=== PATIENT | female | born 1975 | race African-American/Black ===

== ENCOUNTER 2016-05-06 07:37 | Emergency (ER) | payer MEDICARE, OTHER ==
--- NOTE | ~2016-05-06 | CT16 ---
[facility] A Service of [facility] & [facility] RADIOLOGY TEXT RESULTS PATIENT: JESSICA RIVAS LOCATION: SED : 75 UNIT #: [id number] AGE: [address]: Judy Kathleen MD SEX: F ORDER DR: [id number] [address] [address] [id number] E MR#: [id number] Acc #: [id number] NAME: JESSICA RIVAS : 1975 SEX: F STUDY DATE/TIME: 05/06/2016 8:22 UNIT: SED ROOM: STUDY DESCRIPTION: CT Angio Chest for PE Attending Physician: Judy Kathleen M.D. Ordering Physician: Judy Kathleen M.D. Primary Care Physician: Gracie Murrell M.D. MEDICAL IMAGING REPORT This report is preliminary unless electronic signature is present. EXAM CTA chest with contrast PE protocol 05/06/2016 HISTORY 41-year-old female with chest pain and shortness of air today. COMPARISON CTA chest 03/10/2016, Chest CT 12/03/2015. TECHNIQUE Helical scan performed through the chest following the timed bolus administration of IV contrast per PE protocol. Coronal 3-D MIP reconstructions. Sagittal reformatted images. This CT examination was performed with one or more of the following radiation dose reduction techniques: automatic exposure control, adjustment of mA and/or kV according to patient size, and iterative reconstruction. FINDINGS There is adequate opacification of the pulmonary arteries with no filling defects noted. Thoracic aorta normal in course and caliber without dissection. Heart size is normal. No pericardial effusion. No pleural effusions. No pneumothorax. Mild dependent bibasilar atelectasis. Emphysema. There is again noted a spiculated nodule in the right upper lobe measuring 9 x 6 mm. Previously noted cavitary area adjacent to this nodule has resolved since the prior study. There are again noted some smaller satellite nodules clustered around the spiculated nodule. Malignancy is again not excluded. There is a stable 7 mm nodule in the left lung apex and a stable 5 mm nodule in the mid left upper lobe. There are ground-glass opacities in the right middle lobe. This could represent early pneumonia. Follow up to resolution recommended. There is a stable 5 mm pulmonary nodule or interfissural lymph node in the region of the right middle lobe. [facility] A Service of [facility] & [facility] RADIOLOGY TEXT RESULTS PATIENT: JESSICA RIVAS LOCATION: [facility] : 75 UNIT #: [id number] AGE: [address]: Judy Kathleen MD SEX: F ORDER DR: Incidental scanning through the upper abdomen again demonstrates a splenic cyst or hemangioma. No acute bony abnormality. IMPRESSION 1. Negative for pulmonary emboli. 2. Negative for thoracic aortic aneurysm/dissection. 3. Spiculated nodule again noted in the right upper lobe measuring 9 x 6 mm. There has been interval resolution of previously noted cavitary area adjacent to the nodule, but there are persistent adjacent clusters of satellite nodules. This could represent an infectious or inflammatory process. Malignancy is again not excluded. Continued followup is suggested to resolution with chest CT recommended in 3-6 months. Again, biopsy may be considered. 4. Stable nodules in the left upper lobe and right middle lobe near the fissure since 12/03/2015. 5. Emphysema. 6. Stable splenic cyst or hemangioma. Dictated by... Gutierrez Sotelo M.D. THIS IS AN ELECTRONICALLY VERIFIED REPORT Gutierrez Sotelo M.D. at 05/08/2016 7:42 AM TESHA/gigi TD: 05/07/2016 07:35 JOB #: [id number] MEDICAL IMAGING REPORT
--- NOTE | ~2016-05-06 | EKG ---
PATIENT: JESSICA RIVAS UNIT #: [id number] Ventricular Rate: 81 BPM Atrial Rate: 81 BPM P-R Interval: 132 ms QRS Duration: 82 ms Q-T Interval: 364 ms QTC Calculation(Bezet): 422 ms P [place]: 62 degrees Calculated R [place]: 53 degrees Calculated T [place]: -127 degrees Diagnosis Line: Sinus rhythm with occasional Premature ventricular Diagnosis Line: complexes Diagnosis Line: Poor R wave progression questionable lead position Diagnosis Line: or body habitus Borderline ECG Diagnosis Line: When compared with ECG of 04-APR-2016 20:24, Diagnosis Line: Premature ventricular complexes are now Present Diagnosis Line: Confirmed by ELINA DWYER MD ([id number]) on 05/12/2016 Diagnosis Line: 9:37:06 AM INTERPRETING MD: REYMUNDO MERCADO
[2016-05-06 07:30] LABS: BASOPHIL# 0.1 X10e3 (0-0.3); BASOPHIL% 1.6 % (0-2.5); EOSINOPHIL# 0.1 X10e3 (0-0.7); EOSINOPHIL% 1.1 % (0.0-7.0); HEMATOCRIT 42.8 % (35.0-45.0); HEMOGLOBIN 14.5 gm/dL (12.0-16.0); LYMPHOCYTE# 3.7 X10e3 (1.0-3.5); MEAN CORPUSCULAR HEMOGLOBIN 29.5 PG (28-34); MEAN CORPUSCULAR HGB CONC 33.9 g/dL (30-36); MEAN PLATELET VOLUME 9.2 FL (6.5-11.5); MONOCYTE# 0.6 X10e3 (0-1.0); MONOCYTE% 6.8 % (3.0-12.0); NEUTROPHIL# 4.7 X10e3 (1.5-7.1); NEUTROPHIL% 50.5 % (40-75); PLATELET COUNT 178 X10e3 (140-420); RED BLOOD COUNT 4.92 X10e (3.90-5.30); RED CELL DISTRIBUTION WIDTH 13.6 % (11.0-15.5); WHITE BLOOD COUNT 9.2 X10e3 (4.0-10.5)
[2016-05-06 07:33] LABS: DIFF IND NO
[2016-05-06 07:37] LABS: PROTHROMBIN TIME (PATIENT) 11.6 SECONDS (9.5-12.4)
[~2016-05-06 07:37] MED LIST: ABILIFY5 MG PO; ACETAMINOPHEN; ALBUTEROL17 GM INH; ALDACTAZIDE PO; AMARYL PO; ANAPROX DS; ASPIRINEC PO; ATARAX PO; ATENOLOL; ATENOLOL PO; ATENOLOL25 GM; ATENOLOL50 MG PO; ATIVAN PO; AUGMENTIN PO; AZITHROMYCIN250 MG PO; BENADRYL PO; BENADRYL25 M1 PO; BENZONATATE PO; BROMPHED DM PO; CATAPRES0.1 MG PO; CIPRO PO; CLONIDINE HCL0.1 M1 PO; CLONIDINE PO; DIFLUCAN PO; DOXYCYCLINE150 MG PO; EFFER-K 10 MEQ10 MEQ PO; FAMOTIDINE PO; FAMOTIDINE20 MG PO; FLAGYL PO; FLEXERIL10 MG PO; FLONASE16 GM NS; GLUCOPHAGE500 MG PO; GLUCOPHAGE850 MG; HUMALOG INSULIN; HUMULIN 70/30 V10 ML SUBQ; HYDRALAZINE HCL25 MG PO; HYDROCHLOROTHIA25 MG PO; HYDROCORTISONE TOP; IBUPROFEN PO; IBUPROFEN800 MG PO; KEFLEX500 MG PO; KLONOPIN PO; KLONOPIN0.5 M1 PO; LEVAQUIN PO; LEVEMIR SQ; LEVEMIR SUBQ; LIPITOR PO; LISINOPRIL PO; LOPRESSOR PO; MACROBID100 M1 DOB; MEDROL DOSEPAK4 MG PO; MEDROL4 MG/DOSE- PO; METFORMIN PO; MOBIC PO; MOTRIN600 M2; MOUTHWASH180 ML PO; MUCINEX D ER T1 EACH PO; NAPROSYN250 M1 PO; NEURONTIN300 MG PO; NORVASC PO; NORVASC10 MG PO; NOVOLOG100 U/M2 SQ; PEN-VEE K PO; PENICILLIN PO; PERCOCET 5-3251 TAB PO; PHENERGAN PO; PHENERGAN25 M1 PO; PHENERGAN25 MG PO; PREDNISONE PO; PRILOSEC PO; PROVENTIL17 GM IH; PYRIDIUM PO; ROBITUSSIN A-C-S1 ML PO; ROBITUSSIN COU118 ML PO; SENNA-S TABLET1 EACH PO; SPIRONOLAC1 TAB 25/2 PO; TAGAMET PO; TENORMIN50 MG PO; TYLENOL #3 PO; ULTRAM PO; VICODIN 5/1 TAB 5/50 PO; VISTARIL PO; VOLTAREN75 MG PO; WATER PILL; XARELTO15 MG PO; ZANTAC PO; ZITHROMAX PO; ZITHROMAX1 G/PKT PO; ZOFRAN ODT4 MG PO; ZOFRAN ODT4 MG SL; ZOFRAN PO; ZOLOFT50 MG PO; ZYRTEC10 M2 PO
[2016-05-06 07:38] LABS: POC - CKMB <1.0 ng/mL (0.0-7.9); POC - MYOGLOBIN 43.3 ng/mL (0.0-169.0)
[2016-05-06 07:39] LABS: POC - TROPONIN <0.05 ng/mL (<=0.05)
[2016-05-06 07:40] LABS: URINE SOURCE CLEAN CATCH
[2016-05-06 07:44] LABS: URINE APPEARANCE CLEAR; URINE BILIRUBIN NEG (NEG); URINE BLOOD NEG (NEG); URINE COLOR YELLOW; URINE GLUCOSE 300 MG/DL (NORM); URINE KETONE NEG (NEG); URINE LEUKOCYTE ESTERASE NEG (NEG); URINE NITRATE NEG (NEG); URINE PH 5.5 (5-8); URINE PROTEIN NEG (NEG); URINE SPECIFIC GRAVITY <=1.005 (1.003-1.035); URINE UROBILINOGEN 0.2 MG/DL (NORM)
[2016-05-06 07:45] LABS: PARTIAL THROMBOPLASTIN TIME 25.1 SECONDS (25.6-38.1)
[2016-05-06 07:48] LABS: MICRO INDICATED? NO
[2016-05-06 07:55] LABS: AMPHETAMINE NEG (NEG); BARBITURATES NEG (NEG); BENZODIAZEPINES NEG (NEG); COCAINE NEG (NEG); MARIJUANA NEG (NEG); OPIATES POS (NEG); TRICYCLIC ANTIDEPRESSANTS NEG (NEG); U METHADONE NEG (NEG)
[2016-05-06 08:02] LABS: ALBUMIN SERUM 3.7 g/dL (3.5-5.0); ALT (SGPT) 18 U/L (10-40); AST (SGOT) 25 U/L (10-42); BILIRUBIN,TOTAL 0.6 mg/dL (0.2-2.0); BLOOD UREA NITROGEN 9 mg/dL (9-23); BUN/CREATININE RATIO 12.85; CALCIUM SERUM 8.7 mg/dL (8.4-10.2); CARBON DIOXIDE 25 mmol/L (22-31); CHLORIDE 98 mmol/L (100-111); CREATININE SERUM 0.7 mg/dL (0.6-1.4); GLOM FILT RATE Estimated ABOVE60 mL/min (>60); GLUCOSE FASTING 474 mg/dL (70-110); MAGNESIUM 1.9 mg/dL (1.6-3.0); POTASSIUM 3.5 mmol/L (3.5-5.1); PROTEIN TOTAL SERUM 7.1 g/dL (6.0-8.3); SODIUM 132 mmol/L (135-145)
[2016-05-06 08:09] LABS: ALKALINE PHOSPHATASE 73 U/L (32-92)
[2016-05-06 08:17] LABS: ALCOHOL BLOOD <5 mg/dL (0); BILIRUBIN, DIRECT <0.1 mg/dL (0.0-0.2); BILIRUBIN,INDIRECT 0.5 mg/dL (0.0-0.9)
[2016-07-31] MEDS ORDERED: CLONIDINE PO (12:24)
[2016-07-31] MEDS ORDERED: BENTYL10 MG PO (12:25)
[2016-07-31] MEDS ORDERED: ATENOLOL PO (12:25)
[2016-07-31] MEDS ORDERED: LEVEMIR FL100 UNIT/1 SUBQ (12:56)
[2016-07-31] MEDS ORDERED: HUMALOG100 UNIT/2 SUBQ (12:56)
[2016-08-01] MEDS ORDERED: VICODIN ES 7.51 EAC1 PO (12:09)
== END 2016-05-06 09:39 | disposition home or self-care (01) ==
LOC: SED 07:37
PROVIDERS: Student in an Organized Health Care Education/Training Program
DX: R10.13 Epigastric pain (principal); R07.9 Chest pain, unspecified; R07.0 Pain in throat; R91.1 Solitary pulmonary nodule; R73.9 Hyperglycemia, unspecified; F41.9 Anxiety disorder, unspecified; F17.200 Nicotine dependence, unspecified, uncomplicated; Z88.8 Allergy status to other drugs, medicaments and biological substances; Z91.040 Latex allergy status; Z79.899 Other long term (current) drug therapy
CPT/HCPCS: 36415; 71275; 80048; 80076; 80307; 81003; 82553; 83735; 83874; 83880; 84484; 85025; 85610; 85730; 93005; 96365; 96375; 99284; C9113; G0480; J2550; Q9967

== ENCOUNTER 2016-07-28 17:24 | Emergency (ER) | payer MEDICARE, OTHER ==
--- NOTE | ~2016-07-28 | CR72 ---
[facility] A Service of [facility] & [facility] RADIOLOGY TEXT RESULTS PATIENT: JESSICA RIVAS LOCATION: [facility] : 75 UNIT #: [id number] AGE: [address]: Maribell Rios MD SEX: F ORDER DR: [id number] [facility] [address] [place], [place] [address] [id number] E MR#: [id number] Acc #: [id number] NAME: JESSICA RIVAS : 1975 SEX: F STUDY DATE/TIME: 07/28/2016 19:48 UNIT: [facility] ROOM: STUDY DESCRIPTION: CR Chest Single View Portable Attending Physician: Maribell Rios M.D. Ordering Physician: Maribell Rios M.D. Primary Care Physician: Gracie Murrell M.D. MEDICAL IMAGING REPORT This report is preliminary unless electronic signature is present EXAM Single view of the chest, dated 07/28/16 at 1948 hours. COMPARISON Single view chest dated 03/10/16. HISTORY Shortness of air, chest pain, headache, acute fever since yesterday. Chest pain radiates to the right arm. FINDINGS Frontal view of the chest was obtained. Lungs appear to be well aerated without any patchy dense consolidation, pleural effusion or pneumothorax. There are some irregular opacities noted in the region of bilateral supraclavicular soft tissue and the muscles. It probably extends to the left frontal region rather than mild alveolar infiltrate in the left upper lobe. It is unclear if it is intrinsic or extrinsic to the patient. No obvious pleural effusion or pneumothorax is seen. Heart is of normal size. Bones do not demonstrate any severe abnormality. Dictated by... Rafael Marques M.D. THIS IS AN ELECTRONICALLY VERIFIED REPORT Rafael Marques M.D. at 07/31/2016 5:06 PM CPR/jt TD: 07/28/2016 23:14 JOB #: [id number] MEDICAL IMAGING REPORT Page 1 of 1 COPY
--- NOTE | ~2016-07-28 | US67 ---
[facility] A Service of [facility] & [facility] RADIOLOGY TEXT RESULTS PATIENT: JESSICA RIVAS LOCATION: [facility] : 75 UNIT #: [id number] AGE: [address]: Maribell Rios MD SEX: F ORDER DR: [id number] [facility] [address] [place], [place] [address] [id number] E MR#: [id number] Acc #: [id number] NAME: JESSICA RIVAS : 1975 SEX: F STUDY DATE/TIME: 07/28/2016 20:42 UNIT: [facility] ROOM: STUDY DESCRIPTION: Gallbladder Attending Physician: Maribell Rios M.D. Ordering Physician: Maribell Rios M.D. Primary Care Physician: Gracie Murrell M.D. MEDICAL IMAGING REPORT This report is preliminary unless electronic signature is present EXAM Gallbladder ultrasound. HISTORY Abdomen pain for 3 months. No injury. FINDINGS Ultrasound examination of the gallbladder demonstrates gallstones measuring up to 1.5 cm. No gallbladder distension or wall thickening or pericholecystic fluid. No biliary dilatation. The common bile duct measures 5 mm in diameter. IMPRESSION 1. Gallstones measure up to 1.5 cm. 2. No gallbladder distension or wall thickening or adjacent fluid. 3. No biliary dilatation. Dictated by... Dawsno Bentley M.D. THIS IS AN ELECTRONICALLY VERIFIED REPORT Dawson Bentley M.D. at 07/29/2016 11:46 AM DIAN/robert TD: 07/29/2016 00:03 JOB #: [id number] MEDICAL IMAGING REPORT Page 1 of 1 COPY
--- NOTE | ~2016-07-28 | EKG ---
PATIENT: JESSICA RIVAS UNIT #: [id number] Ventricular Rate: 83 BPM Atrial Rate: 83 BPM P-R Interval: 128 ms QRS Duration: 76 ms Q-T Interval: 354 ms QTC Calculation(Bezet): 415 ms P [place]: 41 degrees Calculated R [place]: 24 degrees Calculated T [place]: 80 degrees Diagnosis Line: Normal sinus rhythm Diagnosis Line: Nonspecific T wave abnormality Diagnosis Line: Borderline ECG Diagnosis Line: When compared with ECG of 06-MAY-2016 07:08, Diagnosis Line: Premature ventricular complexes are no longer Diagnosis Line: Present Diagnosis Line: Confirmed by LUCIUS ERICKSON MD ([id number]) on 07/30/2016 Diagnosis Line: 4:28:46 PM INTERPRETING MD: DRE MERCADO
[2016-07-28 18:27] LABS: BASOPHIL# 0.1 X10e3 (0-0.3); BASOPHIL% 0.9 % (0-2.5); EOSINOPHIL# 0.1 X10e3 (0-0.7); EOSINOPHIL% 0.8 % (0.0-7.0); HEMATOCRIT 47.4 % (35.0-45.0); HEMOGLOBIN 16.2 gm/dL (12.0-16.0); LYMPHOCYTE# 2.9 X10e3 (1.0-3.5); LYMPHOCYTE% 32.5 % (17.0-45.0); MEAN CORPUSCULAR HEMOGLOBIN 29.7 PG (28-34); MEAN CORPUSCULAR HGB CONC 34.2 g/dL (30-36); MEAN PLATELET VOLUME 8.7 FL (6.5-11.5); MONOCYTE# 0.6 X10e3 (0-1.0); MONOCYTE% 6.6 % (3.0-12.0); NEUTROPHIL# 5.2 X10e3 (1.5-7.1); NEUTROPHIL% 59.2 % (40-75); PLATELET COUNT 216 X10e3 (140-420); RED BLOOD COUNT 5.45 X10e (3.90-5.30); RED CELL DISTRIBUTION WIDTH 13.4 % (11.0-15.5); WHITE BLOOD COUNT 8.9 X10e3 (4.0-10.5)
[2016-07-28 18:28] LABS: DIFF IND NO
[2016-07-28 18:48] LABS: ALKALINE PHOSPHATASE 79 U/L (32-92); ALT (SGPT) 16 U/L (10-40); AST (SGOT) 12 U/L (10-42); BLOOD UREA NITROGEN 10 mg/dL (9-23); BUN/CREATININE RATIO 14.28; CALCIUM SERUM 8.9 mg/dL (8.4-10.2); CARBON DIOXIDE 28 mmol/L (22-31); CHLORIDE 100 mmol/L (100-111); CREATININE SERUM 0.7 mg/dL (0.6-1.4); GLOM FILT RATE Estimated 124.7 mL/min (>60); GLUCOSE FASTING 195 mg/dL (70-110); POTASSIUM 3.8 mmol/L (3.5-5.1); PROTEIN TOTAL SERUM 7.5 g/dL (6.0-8.3); SODIUM 134 mmol/L (135-145)
[2016-07-28 18:50] LABS: BILIRUBIN, DIRECT <0.1 mg/dL (0.0-0.2); BILIRUBIN,INDIRECT 0.9 mg/dL (0.0-0.9)
[2016-07-28 19:21] LABS: POC - CKMB <1.0 ng/mL (0.0-7.9); POC - TROPONIN <0.05 ng/mL (<=0.05)
[2016-07-28 20:55] LABS: POC - CKMB <1.0 ng/mL (0.0-7.9); POC - TROPONIN <0.05 ng/mL (<=0.05)
[2016-07-31] MEDS ORDERED: CLONIDINE PO (12:24)
[2016-07-31] MEDS ORDERED: ATENOLOL PO (12:25)
[2016-07-31] MEDS ORDERED: BENTYL10 MG PO (12:25)
[2016-07-31] MEDS ORDERED: HUMALOG100 UNIT/2 SUBQ (12:56)
[2016-07-31] MEDS ORDERED: LEVEMIR FL100 UNIT/1 SUBQ (12:56)
[2016-08-01] MEDS ORDERED: VICODIN ES 7.51 EAC1 PO (12:09)
== END 2016-07-28 22:41 | disposition home or self-care (01) ==
LOC: CED 17:24
PROVIDERS: Emergency Medicine
DX: R10.9 Unspecified abdominal pain (principal); R07.9 Chest pain, unspecified; R11.0 Nausea; Z88.6 Allergy status to analgesic agent; Z91.040 Latex allergy status; Z88.8 Allergy status to other drugs, medicaments and biological substances
CPT/HCPCS: 36415; 71010; 76705; 80048; 80076; 82553; 82947; 84484; 85025; 93005; 99284

== ENCOUNTER 2016-07-30 01:54 | Emergency (ER) | payer MEDICARE, OTHER ==
[2016-07-31] MEDS ORDERED: CLONIDINE PO (12:24)
[2016-07-31] MEDS ORDERED: BENTYL10 MG PO (12:25)
[2016-07-31] MEDS ORDERED: ATENOLOL PO (12:25)
[2016-07-31] MEDS ORDERED: HUMALOG100 UNIT/2 SUBQ (12:56)
[2016-07-31] MEDS ORDERED: LEVEMIR FL100 UNIT/1 SUBQ (12:56)
[2016-08-01] MEDS ORDERED: VICODIN ES 7.51 EAC1 PO (12:09)
== END 2016-07-30 02:15 | disposition left against medical advice (07) ==
LOC: CED 01:54
DX: Z53.21 Procedure and treatment not carried out due to patient leaving prior to being seen by health care provider (principal)

== ENCOUNTER → 2016-08-01 | Day surgery (SDC) | payer MEDICARE, OTHER ==
[~2016-08-01] MED LIST changes: +BENTYL10 MG PO; +HUMALOG100 UNIT/2 SUBQ; +LEVEMIR FL100 UNIT/1 SUBQ; +METOPROLOL SUC100 MG PO; +VICODIN ES 7.51 EAC1 PO
== END | disposition home or self-care (01) ==
LOC: CSUR 11:46
PROVIDERS: Surgery
PROC: 0FT44ZZ Resection of Gallbladder, Percutaneous Endoscopic Approach (ICD-10-PCS; principal; 2016-08-01 12:30)
DX: K80.10 Calculus of gallbladder with chronic cholecystitis without obstruction (principal); K76.9 Liver disease, unspecified; K21.9 Gastro-esophageal reflux disease without esophagitis; E11.9 Type 2 diabetes mellitus without complications; Z79.4 Long term (current) use of insulin; Z79.84 Long term (current) use of oral hypoglycemic drugs; I10 Essential (primary) hypertension; M47.9 Spondylosis, unspecified; D57.3 Sickle-cell trait; F17.210 Nicotine dependence, cigarettes, uncomplicated; J43.9 Emphysema, unspecified; F41.9 Anxiety disorder, unspecified; Z79.899 Other long term (current) drug therapy; Z79.1 Long term (current) use of non-steroidal anti-inflammatories (NSAID); Z86.711 Personal history of pulmonary embolism; Z98.51 Tubal ligation status; Z98.890 Other specified postprocedural states; Z83.42 Family history of familial hypercholesterolemia; Z82.3 Family history of stroke; Z83.3 Family history of diabetes mellitus; Z80.0 Family history of malignant neoplasm of digestive organs; Z82.5 Family history of asthma and other chronic lower respiratory diseases; Z91.048 Other nonmedicinal substance allergy status; Z91.040 Latex allergy status; Z88.8 Allergy status to other drugs, medicaments and biological substances
CPT/HCPCS: 82947; 84703; 88304; J0330; J0690; J1650; J2250; J2550; J2710; J3010

== ENCOUNTER 2016-08-03 01:00 | Emergency (ER) | payer MEDICARE, OTHER ==
--- NOTE | ~2016-08-03 | OR ---
Unit #: [id number] #: [id number] Patient: JESSICA RIVAS [id number] [address] [place], [place] [address] [id number] I MR#: [id number] NAME: JESSICA RIVAS ROOM: 23224 Date of Procedure: 08/01/2016 Admission Date: 08/03/2016 Surgeon: Zain Pandya Jr., M.D. : 1975 Attending Physician: Edis Foster M.D. Primary Care Physician: Gracie Murrell M.D. OPERATIVE REPORT INDICATIONS FOR PROCEDURE The patient is a 41-year-old black female, who presented to the office yesterday complaining of severe mid epigastric and right upper quadrant abdominal pain with radiation to the chest. She has been worked up and noted to have evidence of gallstones and felt to be having biliary colic like symptoms. Preoperative liver function tests are normal. She is brought to the operating room at this time at her request for laparoscopic cholecystectomy. She understands the procedure including the risks, including that of common duct injury, biliary leak, and bleeding, and intra-abdominal organ injury, and consents. PREOPERATIVE DIAGNOSES Chronic cholecystitis with cholelithiasis, possible acute. POSTOPERATIVE DIAGNOSES Chronic cholecystitis with cholelithiasis. There was a small amount of fluid within the pelvic area, but this was felt to be probably physiologic. ANESTHESIA General with endotracheal intubation and 0.5% Marcaine with epinephrine locally. PROCEDURE PERFORMED Laparoscopic cholecystectomy. DESCRIPTION OF PROCEDURE The patient was positioned in supine position. After being anesthetized and intubated, she was prepped and draped in routine fashion for laparoscopic cholecystectomy. A small supraumbilical incision was made approximately a centimeter in length and carried down to the fascia. The fascia lifted between 2 Seth clamps and a Veress needle introduced in the abdomen. The abdomen was then inflated with CO2 gas. A 5-mm port was introduced in the abdomen followed by the camera. There was no evidence of any injury related to introduction of the port or the Veress needle. Brief intra-abdominal exploration was carried out. The patient was noted to have a somewhat globular liver with chronic inflamed gallbladder and the small amount of yellow tinged fluid in the pelvis felt to be physiologic. There were no other specific abnormalities grossly. Two 5-mm ports were placed laterally and an 11-mm port just to the right of the upper midline. The gallbladder was lifted. Dissection was carried out in the triangle of Calot. Cystic duct was isolated, hemoclipped x4, and divided approximately a centimeter from its junction with the common Unit #: [id number] #: [id number] Patient: JESSICA RIVAS EDIS duct. The common duct appeared normal. Cystic artery was identified, hemoclipped x3, and divided. The gallbladder was then removed from its bed with the hook cautery using current of 20 and after it was released, it was brought out through the larger port site along with the grasping clamp and the port. The port was replaced. Subhepatic space checked. The gallbladder was sent to pathology. There was no evidence of any bleeding from the subhepatic space. The clips on cystic duct and cystic artery were intact with no evidence of any leak or bleeding. A small amount of bile that was spilled during manipulation of the gallbladder was then absorbed on several sponges that were placed directly in and brought out directly and once this area was clear, the fascia in the larger port site was approximated using the neoClose technique. The CO2 was expressed from the abdomen. The ports were removed. There was no evidence of any bleeding from the port sites. The port sites were irrigated with saline and after hemostasis was achieved with Bovie cautery, skin edges were approximated with stainless-steel skin clips and skin stapling device. Sterile dressings were applied externally. Estimated blood loss less than 25 mL. The patient received less than 1000 mL crystalloid solution during the procedure. Sponges and instrument counts were correct x3. No drains were used. No complications. The patient was taken to the recovery room with stable vital signs in satisfactory condition. Dictated by... Zain Pandya Jr., M.D. JMB/damian TD: 08/02/2016 05:37 JOB #: [id number] OPERATIVE REPORT Page 1 of 1 X Zain Pandya MD X PROCEDURE OPERATIVE NOTE
--- NOTE | ~2016-08-03 | CR72 ---
[facility] A Service of [facility] & [facility] RADIOLOGY TEXT RESULTS PATIENT: JESSICA RIVAS LOCATION: [facility] [id number] : 75 UNIT #: [id number] AGE: [address]: Sindy Foster MD SEX: F ORDER DR: [id number] [address] [address] [id number] E MR#: [id number] Acc #: [id number] NAME: JESSICA RIVAS : 1975 SEX: F STUDY DATE/TIME: 08/03/2016 1:19 UNIT: SED ROOM: STUDY DESCRIPTION: CR Chest Single View Portable Attending Physician: Ravindra Mandujano M.D. Ordering Physician: Ravindra Mandujano M.D. Primary Care Physician: Gracie Murrell M.D. MEDICAL IMAGING REPORT This report is preliminary unless electronic signature is present. EXAM Portable chest, 08/03/2016 INDICATION Chest pain and shortness of air starting tonight. COMPARISON 07/28/2016 FINDINGS A portable upright view of the chest was obtained. Heart size and vascularity are normal and the lungs are clear except for minimal left base subsegmental atelectasis. The bones are normal. IMPRESSION There is minimal subsegmental atelectasis in the left base, otherwise the study is normal. Dictated by... Bib Rodríguez M.D. THIS IS AN ELECTRONICALLY VERIFIED REPORT Bib Rodríguez M.D. at 08/03/2016 5:56 AM Daisha TD: 08/03/2016 04:40 JOB #: [id number] MEDICAL IMAGING REPORT Page 1 of 1
--- NOTE | ~2016-08-03 | EKG ---
PATIENT: JESSICA RIVAS UNIT #: [id number] Ventricular Rate: 75 BPM Atrial Rate: 75 BPM P-R Interval: 130 ms QRS Duration: 84 ms Q-T Interval: 398 ms QTC Calculation(Bezet): 444 ms P [place]: 17 degrees Calculated R [place]: 75 degrees Calculated T [place]: 121 degrees Diagnosis Line: AGE AND GENDER SPECIFIC ECG ANALYSIS Diagnosis Line: Sinus rhythm with Fusion complexes Diagnosis Line: ST elevation consider inferior injury or acute Diagnosis Line: infarct Diagnosis Line: * ACUTE IA Diagnosis Line: Abnormal ECG Diagnosis Line: When compared with ECG of 03-AUG-2016 01:02, Diagnosis Line: Significant changes have occurred Diagnosis Line: Confirmed by BUFFY SWAIN MD ([id number]) on Diagnosis Line: 08/09/2016 8:29:17 AM INTERPRETING MD: WILIAM MERCADO
--- NOTE | ~2016-08-03 | EKG ---
PATIENT: JESSICA RIVAS UNIT #: [id number] Ventricular Rate: 67 BPM Atrial Rate: 67 BPM P-R Interval: 148 ms QRS Duration: 90 ms Q-T Interval: 420 ms QTC Calculation(Bezet): 443 ms P [place]: 51 degrees Calculated R [place]: 29 degrees Calculated T Many: -57 degrees Diagnosis Line: Normal sinus rhythm Diagnosis Line: Nonspecific T wave abnormality Diagnosis Line: Abnormal ECG Diagnosis Line: When compared with ECG of 28-JUL-2016 17:31, Diagnosis Line: T wave inversion now evident in Inferior leads Diagnosis Line: Confirmed by BUFFY SWAIN MD ([id number]) on Diagnosis Line: 08/09/2016 8:29:03 AM INTERPRETING MD: WILIAM MERCADO
[~2016-08-03 01:00] MED LIST changes: -METOPROLOL SUC100 MG PO
[2016-08-03 01:36] LABS: BASOPHIL# 0.1 X10e3 (0-0.3); BASOPHIL% 1.3 % (0-2.5); DIFF IND NO; EOSINOPHIL% 0.6 % (0.0-7.0); HEMOGLOBIN 12.3 gm/dL (12.0-16.0); LYMPHOCYTE# 2.2 X10e3 (1.0-3.5); LYMPHOCYTE% 27.6 % (17.0-45.0); MEAN CELL VOLUME 87.7 FL (83-96); MEAN CORPUSCULAR HEMOGLOBIN 29.9 PG (28-34); MEAN CORPUSCULAR HGB CONC 34.1 g/dL (30-36); MEAN PLATELET VOLUME 8.4 FL (6.5-11.5); MONOCYTE# 0.6 X10e3 (0-1.0); MONOCYTE% 7.7 % (3.0-12.0); NEUTROPHIL% 62.8 % (40-75); PLATELET COUNT 170 X10e3 (140-420); RED BLOOD COUNT 4.11 X10e (3.90-5.30)
[2016-08-03 01:43] LABS: INR 1.1; PROTHROMBIN TIME (PATIENT) 12.4 SECONDS (9.5-12.4)
[2016-08-03 01:50] LABS: PARTIAL THROMBOPLASTIN TIME 24.5 SECONDS (25.6-38.1)
[2016-08-03 01:52] LABS: ALBUMIN SERUM 3.5 g/dL (3.5-5.0); BILIRUBIN,TOTAL 0.5 mg/dL (0.2-2.0); BUN/CREATININE RATIO 11.42; CALCIUM SERUM 8.6 mg/dL (8.4-10.2); CREATININE SERUM 0.7 mg/dL (0.6-1.4); GLOM FILT RATE Estimated 124.7 mL/min (>60); POTASSIUM 3.7 mmol/L (3.5-5.1); PROTEIN TOTAL SERUM 6.6 g/dL (6.0-8.3)
[2016-08-03 01:54] LABS: POC - CKMB <1.0 ng/mL (0.0-7.9); POC - TROPONIN <0.05 ng/mL (<=0.05)
[2016-08-03 06:03] LABS: POC - CKMB <1.0 ng/mL (0.0-7.9)
[2016-08-03 06:04] LABS: POC - TROPONIN <0.05 ng/mL (<=0.05)
== END 2016-08-03 06:17 ==
LOC: SED 01:00 → CEDOF 02:58 → SED 02:58 → CEDOF 02:58
PROVIDERS: Internal Medicine
DX: R07.9 Chest pain, unspecified (principal); I10 Essential (primary) hypertension; E11.9 Type 2 diabetes mellitus without complications; F17.200 Nicotine dependence, unspecified, uncomplicated; Z90.49 Acquired absence of other specified parts of digestive tract; Z91.040 Latex allergy status; Z88.8 Allergy status to other drugs, medicaments and biological substances; Z79.899 Other long term (current) drug therapy; Z79.4 Long term (current) use of insulin
CPT/HCPCS: 71010; 80053; 82553; 83690; 84484; 85025; 85610; 85730; 93005; 96374; 96375; 99291; J1644; J2270; J2550

== ENCOUNTER 2016-10-13 00:16 | Emergency (ER) | payer MEDICARE, OTHER ==
[~2016-10-13] VITALS: Ht 162.6 cm; Wt 72.6 kg
--- NOTE | ~2016-10-13 | CR72 ---
[facility] A Service of [facility] & [facility] RADIOLOGY TEXT RESULTS PATIENT: JESSICA RIVAS LOCATION: SED : 75 UNIT #: [id number] AGE: [address]: Antonio Aguila MD SEX: F ORDER DR: [id number] [address] [address] [id number] E MR#: [id number] Acc #: [id number] NAME: JESSICA RIVAS : 1975 SEX: F STUDY DATE/TIME: 10/13/2016 1:37 UNIT: SED ROOM: STUDY DESCRIPTION: CR Chest Single View Portable Attending Physician: Antonio Aguila M.D. Ordering Physician: Antonio Aguila M.D. Primary Care Physician: Gracie Murrell M.D. MEDICAL IMAGING REPORT This report is preliminary unless electronic signature is present. EXAM Chest x-ray, 10/13/2016. HISTORY 41-year-old female in the ED complaining of chest pain, cough, fever and chills. Symptoms began earlier tonight. TECHNIQUE AP portable chest x-ray. FINDINGS Heart size and pulmonary vascularity are within normal limits given AP portable technique. The lungs are expanded and clear. No visible pulmonary infiltrate or pleural effusion. No change since 08/28/2016. IMPRESSION Negative chest. No change since 08/28/2016. Dictated by... Brando Ratliff M.D. THIS IS AN ELECTRONICALLY VERIFIED REPORT Brando Ratliff M.D. at 10/16/2016 11:07 PM GLADISW/erika TD: 10/13/2016 13:41 JOB #: [id number] MEDICAL IMAGING REPORT Page 1 of 1
--- NOTE | ~2016-10-13 | EKG ---
PATIENT: JESSICA RIVAS UNIT #: [id number] Ventricular Rate: 74 BPM Atrial Rate: 74 BPM P-R Interval: 134 ms QRS Duration: 80 ms Q-T Interval: 404 ms QTC Calculation(Bezet): 448 ms P [place]: 62 degrees Calculated R [place]: 37 degrees Calculated T [place]: 67 degrees Diagnosis Line: Normal sinus rhythm Diagnosis Line: Poor R wave progression questionable lead position Diagnosis Line: or body habitus T wave abnormality, consider Diagnosis Line: anterior ischemia Diagnosis Line: Abnormal ECG Diagnosis Line: When compared with ECG of 13-OCT-2016 00:31, Diagnosis Line: (unconfirmed) Diagnosis Line: QT has shortened Diagnosis Line: Confirmed by ELINA DWYER MD ([id number]) on 10/13/2016 Diagnosis Line: 4:33:57 PM INTERPRETING MD: REYMUNDO MERCADO
--- NOTE | ~2016-10-13 | EKG ---
PATIENT: JESSICA RIVAS UNIT #: [id number] Ventricular Rate: 93 BPM Atrial Rate: 93 BPM P-R Interval: 130 ms QRS Duration: 76 ms Q-T Interval: 448 ms QTC Calculation(Bezet): 557 ms P [place]: 56 degrees Calculated R [place]: 47 degrees Calculated T [place]: 74 degrees Diagnosis Line: Normal sinus rhythm Diagnosis Line: Nonspecific ST abnormality Diagnosis Line: Prolonged QT Diagnosis Line: Abnormal ECG Diagnosis Line: When compared with ECG of 03-AUG-2016 05:24, Diagnosis Line: Significant changes have occurred Diagnosis Line: Confirmed by ELINA DWYER MD ([id number]) on 10/13/2016 Diagnosis Line: 4:33:40 PM INTERPRETING MD: REYMUNDO MERCADO
[2016-10-13] MEDS ORDERED: METOPROLOL SUC100 MG PO (00:25)
[2016-10-13 01:45] LABS: BASOPHIL# 0.1 X10e3 (0-0.3); BASOPHIL% 1.3 % (0-2.5); EOSINOPHIL# 0.1 X10e3 (0-0.7); EOSINOPHIL% 1.2 % (0.0-7.0); HEMATOCRIT 45.9 % (35.0-45.0); HEMOGLOBIN 16.4 gm/dL (12.0-16.0); LYMPHOCYTE# 4.1 X10e3 (1.0-3.5); LYMPHOCYTE% 46.1 % (17.0-45.0); MEAN CORPUSCULAR HEMOGLOBIN 30.7 PG (28-34); MEAN CORPUSCULAR HGB CONC 35.7 g/dL (30-36); MONOCYTE# 0.5 X10e3 (0-1.0); NEUTROPHIL# 4.1 X10e3 (1.5-7.1); NEUTROPHIL% 45.4 % (40-75); PLATELET COUNT 196 X10e3 (140-420); RED BLOOD COUNT 5.34 X10e (3.90-5.30); RED CELL DISTRIBUTION WIDTH 13.8 % (11.0-15.5)
[2016-10-13 01:46] LABS: DIFF IND NO
[2016-10-13 01:51] LABS: URINE APPEARANCE SL CLOUDY; URINE BILIRUBIN NEG (NEG); URINE COLOR YELLOW; URINE KETONE NEG (NEG); URINE LEUKOCYTE ESTERASE NEG (NEG); URINE NITRATE NEG (NEG); URINE PH 5.5 (5-8); URINE PROTEIN TRACE (NEG); URINE SOURCE CLEAN CATCH; URINE SPECIFIC GRAVITY 1.025 (1.003-1.035); URINE UROBILINOGEN 0.2 MG/DL (NORM)
[2016-10-13 01:58] LABS: MICRO INDICATED? NO; URINE BLOOD NEG (NEG); URINE GLUCOSE NORM (NORM)
[2016-10-13 02:03] LABS: ALBUMIN SERUM 4.1 g/dL (3.5-5.0); ALKALINE PHOSPHATASE 85 U/L (32-92); ALT (SGPT) 25 U/L (10-40); AST (SGOT) 35 U/L (10-42); BILIRUBIN,TOTAL 0.2 mg/dL (0.2-2.0); CALCIUM SERUM 8.9 mg/dL (8.4-10.2); CARBON DIOXIDE 26 mmol/L (22-31); CHLORIDE 104 mmol/L (100-111); CREATININE SERUM 0.8 mg/dL (0.6-1.4); GLOM FILT RATE Estimated 106.2 mL/min (>60); GLUCOSE FASTING 163 mg/dL (70-110); POTASSIUM 3.1 mmol/L (3.5-5.1); PROTEIN TOTAL SERUM 7.6 g/dL (6.0-8.3); SODIUM 138 mmol/L (135-145)
[2016-10-13 02:04] LABS: BILIRUBIN, DIRECT <0.1 mg/dL (0.0-0.2); BILIRUBIN,INDIRECT 0.1 mg/dL (0.0-0.9); BLOOD UREA NITROGEN <5 mg/dL (9-23); BUN/CREATININE RATIO 6.25
[2016-10-13 02:04] LABS: POC - CKMB <1.0 ng/mL (0.0-7.9); POC - MYOGLOBIN 33.8 ng/mL (0.0-169.0); POC - TROPONIN <0.05 ng/mL (<=0.05)
[2016-10-13 02:09] LABS: PROTHROMBIN TIME (PATIENT) 11.4 SECONDS (9.5-12.4)
== END 2016-10-13 02:58 | disposition home or self-care (01) ==
LOC: SED 00:16
PROVIDERS: Emergency Medicine
DX: R50.9 Fever, unspecified (principal); R07.9 Chest pain, unspecified; F41.9 Anxiety disorder, unspecified; E87.6 Hypokalemia; Z90.49 Acquired absence of other specified parts of digestive tract; F17.200 Nicotine dependence, unspecified, uncomplicated; Z91.040 Latex allergy status; Z88.8 Allergy status to other drugs, medicaments and biological substances
CPT/HCPCS: 36415; 71010; 80048; 80076; 81003; 82553; 83605; 83735; 83874; 84484; 85025; 85610; 85730; 87040; 93005; 96374; 96375; 99285; J2270; J2550